=== PATIENT | female | born 1985 ===

== ENCOUNTER 2023-06-21 17:44 | Inpatient (IN) | payer OTHER ==
[2023-06-21] MEDS ORDERED: Lidocaine 1% 50 ML MDV INJECT PRN (18:31)
[2023-06-21] MEDS ORDERED: Water For Irrigation,Sterile 1,000 ML Container IRR PRN (18:31)
[2023-06-21] MEDS ORDERED: Methylergonovine 0.2 MG/1 ML Amp IM PRN (18:31)
[2023-06-21] MEDS ORDERED: Tranexamic Acid 1,000 MG in Sodium Chloride 0.9% 100 ML IV PRN (18:31)
[2023-06-21] MEDS ORDERED: Carboprost Tromethamine 250 MCG/1 mL Vial IM PRN (18:31)
[2023-06-21] MEDS ORDERED: Magnesium Sulfate/Water 4 GM in Premix Bag 1 BAG IV ONE (18:31)
[2023-06-21] MEDS ORDERED: Misoprostol 200 MCG Tab PO PRN (18:31)
[2023-06-21] MEDS ORDERED: Calcium Gluconate 10% 1 GM/10 ML SDV IV PRN (18:31)
[2023-06-21] MEDS ORDERED: Ondansetron 4 MG/2 ML SDV IVPUSH PRN (18:31)
[2023-06-21] MEDS ORDERED: Misoprostol 25 MCG (1/4 of 100 MCG) Tab VAG ONE (18:43)
[2023-06-21] MEDS ORDERED: Lactated Ringers 1,000 ML IV SCH (18:45)
[2023-06-21] MEDS ORDERED: Oxytocin/0.9 % Sodium Chloride 30 UNIT/500 ML BAG IV SCH ×2 (18:45→23:45)
[2023-06-21] MEDS: Sodium Chloride 0.9% 1,000 ML IV SCH (19:23)
[2023-06-21] MEDS: Magnesium Sulfate/Water 20 GM/500 ML BAG IV SCH (19:55)
[2023-06-21] MEDS ORDERED: Misoprostol 25 MCG (1/4 of 100 MCG) Tab ONE (23:25)
[2023-06-22] MEDS ORDERED: Acetaminophen 500 MG Tab PO ONE (05:52)
[2023-06-22] MEDS ORDERED: Acetaminophen 500 MG Tab ONE (05:54)
[2023-06-22] MEDS ORDERED: Bupivacaine 0.5% 10 ML SDV ONE (12:44)
[2023-06-22] MEDS ORDERED: Ropivacaine/PF 400 MG/200 ML PCA ONE (12:44)
[2023-06-22] MEDS ORDERED: Dexmedetomidine 200 MCG/2 ML SDV ONE (13:35)
[2023-06-22] MEDS ORDERED: Water For Injection, Sterile 20 ML SDV ONE (13:35)
[2023-06-22] MEDS ORDERED: Oxytocin 10 Units/1 ML SDV ONE (13:35)
[2023-06-22] MEDS ORDERED: Ropivacaine 0.5% 5 MG/ML 30 ML SDV ONE (13:35)
[2023-06-22] MEDS ORDERED: fentaNYL 100 MCG/2 ML SDV ONE (13:35)
[2023-06-22] MEDS ORDERED: Ketorolac 30 MG/ML SDV ONE (13:42)
[2023-06-22] MEDS ORDERED: Phenylephrine 1% 10 MG/ML SDV ONE (13:42)
[2023-06-22] MEDS ORDERED: ePHEDrine 50 MG/ML SDV ONE (13:42)
[2023-06-22] MEDS ORDERED: ceFAZolin 2 GM Vial ONE (13:43)
[2023-06-22] MEDS ORDERED: Morphine PF 10 MG/10 ML SDV ONE (13:45)
[2023-06-22] MEDS ORDERED: ePHEDrine 50 MG/ML SDV IVPUSH PRN ×2 (14:26)
[2023-06-22] MEDS ORDERED: Phenylephrine HCl 0.5 MG/5 ML AMP IVPUSH PRN (14:26)
[2023-06-22] MEDS ORDERED: Ropivacaine HCl/PF 400 MG in Premix Bag 1 BAG EPIDUR SCH (14:30)
[2023-06-22] MEDS ORDERED: Acetaminophen/oxyCODONE 325-5 MG Tab PO PRN ×2 (15:20)
[2023-06-22] MEDS ORDERED: Bisacodyl 10 MG Supp RECTAL PRN (15:20)
[2023-06-22] MEDS ORDERED: Oxytocin 10 Units/1 ML SDV IM PRN (15:20)
[2023-06-22] MEDS ORDERED: Lanolin 100% Cream 7 GM Tube TOP PRN (15:20)
[2023-06-22] MEDS ORDERED: Ondansetron 4 MG/2 ML SDV IVPUSH PRN ×2 (15:20→15:46)
[2023-06-22] MEDS ORDERED: diphenhydrAMINE 50 MG/ML SDV IVPUSH PRN ×2 (15:20→15:46)
[2023-06-22] MEDS ORDERED: Misoprostol 200 MCG Tab RECTAL PRN (15:20)
[2023-06-22] MEDS ORDERED: Tranexamic Acid 1,000 MG in Sodium Chloride 0.9% 100 ML IV PRN (15:20)
[2023-06-22] MEDS ORDERED: Ketorolac 30 MG/ML SDV IVPUSH SCH (15:30)
[2023-06-22 15:43] LABS: PH,UMBILICAL ARTERIAL 7.186 (7.18-7.38); PH,UMBILICAL VENOUS 7.127 (7.25-7.45)
[2023-06-22] MEDS: Sodium Chloride 0.9% 1,000 ML IV SCH (17:33)
[2023-06-22] MEDS: Magnesium Sulfate/Water 20 GM/500 ML BAG IV SCH (17:33)
[2023-06-22] MEDS: Ketorolac 30 MG/ML SDV IVPUSH SCH (20:26)
[2023-06-22] MEDS ORDERED: ceFAZolin 1 GM in Sodium Chloride 0.9% 50 ML IV ONE (21:00)
[2023-06-22] MEDS: Docusate Sodium 100 MG Cap PO SCH (21:09)
[2023-06-23] MEDS: Ketorolac 30 MG/ML SDV IVPUSH SCH ×3 (02:10→15:45)
[2023-06-23] MEDS ORDERED: ceFAZolin 1 GM in Sodium Chloride 0.9% 50 ML IV ONE (06:00)
[2023-06-23 06:15] LABS: HEMATOCRIT 28.3 % (36.0-46.0); HEMOGLOBIN 9.5 g/dL (12.0-16.0)
[2023-06-23] MEDS: Acetaminophen 500 MG Tab PO PRN ×2 (07:04→13:21)
[2023-06-23] MEDS: Docusate Sodium 100 MG Cap PO SCH ×3 (08:02→23:54)
[2023-06-23 09:15] LABS: A/G RATIO 0.6 (0.9-1.6); ALBUMIN 1.8 g/dL (3.4-5.0); BILIRUBIN TOTAL 0.2 mg/dL (0.2-1.0); CALCIUM 6.8 mg/dL (8.5-10.1); CARBON DIOXIDE,CO2 19.4 mmol/L (21.0-32.0); CREATININE 0.7 mg/dL (0.6-1.0); EST CRCL DRUG DOSING (CG) 88.72 mL/min; POTASSIUM,K 4.2 mmol/L (3.5-5.1); PROTEIN TOTAL,TP 4.8 g/dL (6.4-8.2)
[2023-06-23] MEDS: Ibuprofen 800 MG Tab PO PRN (23:52)
[2023-06-24] MEDS ORDERED: ceFAZolin 1 GM in Sodium Chloride 0.9% 50 ML IV ONE (06:00)
[2023-06-24] MEDS: Docusate Sodium 100 MG Cap PO SCH ×2 (08:52→22:06)
[2023-06-24] MEDS: Ibuprofen 800 MG Tab PO PRN ×2 (08:52→22:06)
[2023-06-25] MEDS: Docusate Sodium 100 MG Cap PO SCH (08:47)
== END 2023-06-25 19:10 | disposition home or self-care (01) | DRG 788 ==
LOC: MW.OBCHECK 17:44 → MW.OB 17:51 → MW.OBCHECK 18:31 → MW.OB 18:31 → OBSVTOIN 06-22 13:18 → MW.OB 06-22 20:13
PROVIDERS: ADMIT Obstetrics & Gynecology; ATTEND Obstetrics & Gynecology
PROC: 10D00Z1 Extraction of Products of Conception, Low, Open Approach (ICD-10-PCS; principal; 2023-06-22)
PROC: 3E0P7VZ Introduction of Hormone into Female Reproductive, Via Natural or Artificial Opening (ICD-10-PCS; 2023-06-22)
PROC: 3E033VJ Introduction of Other Hormone into Peripheral Vein, Percutaneous Approach (ICD-10-PCS; 2023-06-22)
PROC: 0T9B70Z Drainage of Bladder with Drainage Device, Via Natural or Artificial Opening (ICD-10-PCS; 2023-06-22)
DX: O14.14 Severe pre-eclampsia complicating childbirth (principal); O69.0XX0 Labor and delivery complicated by prolapse of cord, not applicable or unspecified; O76 Abnormality in fetal heart rate and rhythm complicating labor and delivery; Z37.0 Single live birth; Z3A.38 38 weeks gestation of pregnancy
CPT/HCPCS: 01967; 01968; 36415; 64488; 74018; 74018-26; 80053; 82803; 83735; 85014; 85018; 86592; 86850; 86900; 86901; A9270-GY; J0131; J0690; J1885; J2274; J2370; J2405; J2590; J2795; J3010; J3475; J3490; J7030; J7120